=== PATIENT | female | born 1990 | race Caucasian/White ===

== ENCOUNTER 2018-08-11 13:13 | Outpatient (CLI) | payer OTHER ==
[2018-08-11 17:09] LABS: RUPTURE FETAL MEMBRANES NEGATIVE (NEGATIVE)
== END 2018-08-11 17:21 | disposition home or self-care (01) ==
LOC: OBT 13:13 → L-D 13:13 → OBT 17:21
DX: O62.9 Abnormality of forces of labor, unspecified (principal); Z3A.37 37 weeks gestation of pregnancy
CPT/HCPCS: 76815; 76818; 84112

== ENCOUNTER 2018-08-13 12:26 | Outpatient (CLI) | payer OTHER | END 2018-08-13 16:10 | disposition home or self-care (01) | LOC: OBT 12:26 → L-D 12:26 → OBT 16:10 | DX: O36.8330 Maternal care for abnormalities of the fetal heart rate or rhythm, third trimester, not applicable or unspecified (principal); Z3A.37 37 weeks gestation of pregnancy | CPT/HCPCS: 76818 ==

== ENCOUNTER 2018-08-14 07:22 | Inpatient (IN) | payer OTHER ==
[2018-08-14 08:16] LABS: RUPTURE FETAL MEMBRANES POSITIVE (NEGATIVE)
[2018-08-14 09:24] LABS: ADD MAN DIFF? NO
[2018-08-14 09:30] LABS: WHITE BLOOD COUNT 10.2 10^3/ul (4.8-10.8)
[2018-08-14 09:30] LABS: BASOPHIL # 0.1 10^3/ul (0.0-0.1); BASOPHILS % 0.5 % (0.0-2.0); EOSINOPHILS # 0.4 10^3/ul (0.0-0.5); EOSINOPHILS % 3.9 % (0.0-7.0); HEMATOCRIT 38.4 % (37.0-47.0); HEMOGLOBIN 13.2 g/dl (12.0-16.0); LYMPHOCYTES # 3.2 10^3/ul (0.8-2.9); LYMPHOCYTES % 31.7 % (15.0-51.0); MEAN CORPUSCULAR HEMOGLOBIN 30.6 pg (29.0-33.0); MEAN CORPUSCULAR HGB CONC 34.4 g/dl (32.0-37.0); MEAN CORPUSCULAR VOLUME 88.9 fl (82.0-101.0); MEAN PLATELET VOLUME 9.6 fl (7.4-10.4); MONOCYTE # 0.9 10^3/ul (0.3-0.9); MONOCYTES % 8.4 % (0.0-11.0); NEUTROPHIL # 5.6 10^3/ul (1.6-7.5); NEUTROPHILS % 54.6 % (39.0-77.0); PLATELET COUNT 212 10^3/UL (140-415); RED BLOOD COUNT 4.32 10^6/ul (4.20-5.40); RED CELL DISTRIBUTION WIDTH 12.2 % (11.5-14.5)
[2018-08-14] MEDS ORDERED: METHYLERGONOVINE 0.2 MG INJ IM ×2 (09:30→21:30)
[2018-08-14] MEDS ORDERED: BUTORPHANOL 2 MG INJ IV (09:30)
[2018-08-14] MEDS ORDERED: CARBOPROST 250 MCG INJ IM ×2 (09:30→21:30)
[2018-08-14] MEDS ORDERED: MISOPROSTOL 200 MCG TAB PR ×2 (09:30→21:30)
[2018-08-14] MEDS ORDERED: IBUPROFEN 600 MG TAB PO (09:30)
[2018-08-14] MEDS ORDERED: OXYTOCIN 30 UNITS/LR 500 ML IV ×4 (09:30→21:30)
[2018-08-14] MEDS ORDERED: LIDOCAINE 1% (MPF) 30 ML INJ INJ (09:30)
[2018-08-14 09:47] LABS: INR 0.91; PROTIME 12.3 Sec (11.9-14.9)
[2018-08-14 09:48] LABS: PARTIAL THROMBOPLASTIN TIME 24.6 Sec (23.0-35.0)
[2018-08-14 10:16] LABS: HEPATITIS B SURFACE ANTIGEN NEGATIVE (NEGATIVE)
[2018-08-14] MEDS: LACTATED RINGER'S 1,000 ML IV ×2 (15:33→15:37)
[2018-08-14 15:54] LABS: RAPID PLASMA REAGIN NONREACTIVE (NR)
[2018-08-14] MEDS: OXYTOCIN 30 UNITS/LR 500 ML IV (18:18)
[2018-08-14] MEDS ORDERED: DEXTROSE 5%-LR 1,000 ML IV (21:13)
[2018-08-14] MEDS ORDERED: WITCH HAZEL/GLYCERIN PAD PR (21:30)
[2018-08-14] MEDS ORDERED: DIBUCAINE 1% 30 GM OINT TOP (21:30)
[2018-08-14] MEDS ORDERED: ONDANSETRON 4 MG INJ IV (21:30)
[2018-08-14] MEDS ORDERED: ACETAMINOPHEN 325 MG TAB PO (21:30)
[2018-08-14] MEDS ORDERED: ZOLPIDEM 5 MG TAB PO (21:30)
[2018-08-14] MEDS ORDERED: OXYCODONE/ASPIRIN (4.88/325) TAB PO (21:30)
[2018-08-14] MEDS ORDERED: DIPHENHYDRAMINE 50 MG INJ IV (21:30)
[2018-08-14] MEDS ORDERED: LACTATED RINGER'S 1,000 ML IV* (23:00)
[2018-08-14] MEDS: IBUPROFEN 600 MG TAB PO (23:24)
[2018-08-14] MEDS: BENZOCAINE 20% 56 ML SPRAY TOP (23:24)
[2018-08-15] MEDS: LACTATED RINGER'S 1,000 ML IV* (00:44)
[2018-08-15] MEDS: IBUPROFEN 600 MG TAB PO ×5 (05:43→23:53)
[2018-08-15 08:47] LABS: ADD MAN DIFF? NO
[2018-08-15 08:48] LABS: BASOPHILS % 0.2 % (0.0-2.0); EOSINOPHILS # 0.2 10^3/ul (0.0-0.5); EOSINOPHILS % 1.3 % (0.0-7.0); HEMATOCRIT 33.8 % (37.0-47.0); HEMOGLOBIN 11.6 g/dl (12.0-16.0); LYMPHOCYTES # 2.4 10^3/ul (0.8-2.9); LYMPHOCYTES % 19.3 % (15.0-51.0); MEAN CORPUSCULAR HEMOGLOBIN 30.3 pg (29.0-33.0); MEAN CORPUSCULAR HGB CONC 34.3 g/dl (32.0-37.0); MEAN CORPUSCULAR VOLUME 88.3 fl (82.0-101.0); MEAN PLATELET VOLUME 9.6 fl (7.4-10.4); MONOCYTES % 7.7 % (0.0-11.0); NEUTROPHIL # 8.9 10^3/ul (1.6-7.5); NEUTROPHILS % 70.7 % (39.0-77.0); PLATELET COUNT 195 10^3/UL (140-415); RED BLOOD COUNT 3.83 10^6/ul (4.20-5.40); RED CELL DISTRIBUTION WIDTH 12.4 % (11.5-14.5)
[2018-08-15 08:48] LABS: WHITE BLOOD COUNT 12.6 10^3/ul (4.8-10.8)
[2018-08-15] MEDS: SENNA/DOCUSATE NA (8.6MG/50MG) TAB PO ×2 (09:12→20:43)
[2018-08-15] MEDS: LANOLIN HPA 1 PKT TOP (20:43)
[2018-08-16] MEDS: IBUPROFEN 600 MG TAB PO ×2 (05:54→11:43)
[2018-08-16] MEDS ORDERED: MEASLES,MUMPS,RUBELLA VACCINE INJ SC* (09:00)
[2018-08-16] MEDS ORDERED: DIPHTH/TET/ACEL PERTUSS (ADULT) 0.5 ML VIAL IM* (09:00)
[2018-08-16] MEDS: SENNA/DOCUSATE NA (8.6MG/50MG) TAB PO (09:36)
== END 2018-08-16 17:32 | disposition home or self-care (01) | DRG 807 ==
LOC: OBT 07:22 → L-D 07:22 → OBT 08:39 → L-D 08:35 → PP1 21:48
PROVIDERS: Obstetrics & Gynecology
PROC: 10E0XZZ Delivery of Products of Conception, External Approach (ICD-10-PCS; principal; 2018-08-14)
DX: O80 Encounter for full-term uncomplicated delivery (principal); Z37.0 Single live birth; Z3A.38 38 weeks gestation of pregnancy
CPT/HCPCS: 76818; 84112; 85025; 85610; 85730; 86592; 86850; 86900; 86901; 87340